=== PATIENT | female | born 1960 | race Caucasian/White ===

== ENCOUNTER 2022-03-17 18:18 | Emergency (ER) | payer OTHER ==
[2022-03-17 20:05] VITALS: BP 139/78; PULSE 80
== END 2022-03-17 20:08 | disposition home or self-care (01) ==
LOC: MW.ED 18:18
DX: S52.122A Displaced fracture of head of left radius, initial encounter for closed fracture (principal); S52.132A Displaced fracture of neck of left radius, initial encounter for closed fracture; W19.XXXA Unspecified fall, initial encounter
CPT/HCPCS: 73080-26-LT; 73080-LT; 99283; 99283-25